=== PATIENT | male | born 1995 | race Two or more races ===

== ENCOUNTER 2024-10-28 12:54 | Emergency (ER) | payer MEDICAID ==
[~2024-10-28] VITALS: Ht 165.1 cm; Wt 74.8 kg
[2024-10-28 12:59] VITALS: TEMP 98
[2024-10-28] MEDS ORDERED: TDAP [DIPH/PERTUSSIS/TET] 0.5 ML VIAL IM ONE (13:14)
[2024-10-28] MEDS: TDAP [DIPH/PERTUSSIS/TET] 0.5 ML VIAL IM ONE (13:18)
[2024-10-28 13:47] VITALS: BP 125/80; O2SAT 98
== END 2024-10-28 13:45 | disposition home or self-care (01) ==
LOC: ER 13:01 → EDBD 13:01 → ER 13:45
DX: S61.213A Laceration without foreign body of left middle finger without damage to nail, initial encounter (principal); W26.0XXA Contact with knife, initial encounter; Y93.G3 Activity, cooking and baking; Y92.090 Kitchen in other non-institutional residence as the place of occurrence of the external cause; Y99.8 Other external cause status
CPT/HCPCS: 90715